=== PATIENT | male | born 1990 | race Caucasian/White ===

== ENCOUNTER → 2017-01-04 | Outpatient (REF) | payer OTHER ==
[2017-01-04 12:17] LABS: ALBUMIN 3.9 GM/DL (3.2-5.2); ALBUMIN/GLOBULIN RATIO 1.18 (1.00-1.93); ALKALINE PHOSPHATASE 105 U/L (45-117); ALT/SGPT 52 U/L (12-78); ANION GAP 10 MEQ/L (8-16); AST/SGOT 25 U/L (15-37); BILIRUBIN,TOTAL 0.4 MG/DL (0.2-1.0); BLOOD UREA NITROGEN 13 MG/DL (7-18); CALCIUM LEVEL 8.6 MG/DL (8.5-10.1); CARBON DIOXIDE LEVEL 25 MEQ/L (21-32); CHLORIDE LEVEL 104 MEQ/L (98-107); CREATININE FOR GFR 0.82 MG/DL (0.70-1.30); GLOMERULAR FILTRATION RATE > 60.0 (>60); GLUCOSE, FASTING 105 MG/DL (70-105); POTASSIUM SERUM 4.1 MEQ/L (3.5-5.1); SODIUM LEVEL 139 MEQ/L (136-145); TOTAL PROTEIN 7.2 GM/DL (6.4-8.2)
== END ==
LOC: M SFHCPLAZ 07:55
PROVIDERS: ATTEND Nurse Practitioner Family
DX: R73.03 Prediabetes (principal); E55.9 Vitamin D deficiency, unspecified

== ENCOUNTER 2017-02-15 11:30 | Emergency (ER) | payer OTHER ==
[~2017-02-15] VITALS: Ht 170.2 cm; Wt 91.7 kg
[2017-02-15] MEDS ORDERED: CLAR10CA3 PO (11:42)
[2017-02-15] MEDS ORDERED: VITA100037 PO (11:42)
[2017-02-15] MEDS ORDERED: IBUPROFEN 800 MG TAB PO ONE (13:30)
[2017-02-15] MEDS ORDERED: IBUP80TA PO (14:07)
[2017-02-15 14:09] VITALS: BP 141/73
--- NOTE | 2017-02-15 14:11 | REP ---
Left ankle four views : There is no fracture or dislocation. There is focal soft tissue swelling posterior to the calcaneus. There are no calcifications or foreign bodies. The mortise is symmetric. Impression: Focal soft tissue swelling posterior to the calcaneus. Signed by Bandar Funez MD 02/15/2017 02:02 P
== END 2017-02-15 14:18 | disposition home or self-care (01) ==
LOC: M ED 11:30
DX: S86.012A Strain of left Achilles tendon, initial encounter (principal); X58.XXXA Exposure to other specified factors, initial encounter; Y92.89 Other specified places as the place of occurrence of the external cause; Y93.89 Activity, other specified; Y99.9 Unspecified external cause status

== ENCOUNTER → 2017-05-01 | Outpatient (REF) | payer MEDICAID, OTHER ==
[~2017-05-01] MED LIST: CLAR10CA3 PO; IBUP80TA PO; VITA100067 PO
[2017-05-01 12:31] LABS: MEAN CORPUSCULAR HEMOGLOBIN 31.5 pg (27.0-33.0); MEAN CORPUSCULAR VOLUME 92.7 fl (80.0-96.0); RED CELL DISTRIBUTION WIDTH 12.5 % (11.5-14.5); WHITE BLOOD COUNT 8.1 K/mm3 (4.0-10.0)
[2017-05-01 13:02] LABS: FREE T4 1.07 NG/DL (0.76-1.46)
== END ==
LOC: M SFHCPLAZ 10:45
PROVIDERS: ATTEND Nurse Practitioner Family
DX: F32.1 Major depressive disorder, single episode, moderate (principal)

== ENCOUNTER → 2017-08-09 | Outpatient (REF) | payer OTHER | LOC: M LAB REF 12:23 | PROVIDERS: ATTEND Physician Assistant | DX: J02.9 Acute pharyngitis, unspecified (principal) ==

== ENCOUNTER → 2017-10-01 | Outpatient (REF) | payer OTHER | LOC: M LAB REF 12:15 | DX: J02.9 Acute pharyngitis, unspecified (principal) ==